=== PATIENT | female | born 1990 | race Caucasian/White ===

== ENCOUNTER 2018-07-03 12:57 | Outpatient (CLI) | payer OTHER | END 2018-07-03 13:15 | disposition home or self-care (01) | LOC: SONOGRAMA 12:57 → MAMO-SONO 13:15 | DX: Z34.80 Encounter for supervision of other normal pregnancy, unspecified trimester (principal) ==

== ENCOUNTER 2018-09-26 14:00 | Inpatient (IN) | payer OTHER ==
[~2018-09-26] VITALS: Ht 160 cm; Wt 3.6 kg
[2018-10-05] MEDS ORDERED: PRENATAL PLUS1 EAC1 PO (06:35)
[2018-10-07] MEDS ORDERED: TYLENOL EXTRA500 MG PO (12:03)
[2018-10-07] MEDS ORDERED: IBUPROFEN800 MG PO (12:03)
== END 2018-10-07 14:12 | DRG 785 ==
LOC: EDSTATUS 14:00 → ADM 14:00 → O/R 10-05 05:54 → LDR 10-05 07:00 → OB/GYN 10-05 13:07 → LDR 10-05 14:00 → OB/GYN 10-07 14:12
PROVIDERS: ADMIT Specialist
PROC: 4A1HXCZ Monitoring of Products of Conception, Cardiac Rate, External Approach (ICD-10-PCS; 2018-10-05)
PROC: 0UB70ZZ Excision of Bilateral Fallopian Tubes, Open Approach (ICD-10-PCS; 2018-10-05)
PROC: 10D00Z1 Extraction of Products of Conception, Low, Open Approach (ICD-10-PCS; principal; 2018-10-05 07:00)
DX: O34.211 Maternal care for low transverse scar from previous cesarean delivery (principal); O36.63X0 Maternal care for excessive fetal growth, third trimester, not applicable or unspecified; O82 Encounter for cesarean delivery without indication; Z30.2 Encounter for sterilization; Z3A.39 39 weeks gestation of pregnancy; Z37.0 Single live birth